=== PATIENT | female | born 1995 | race Two or more races ===

== ENCOUNTER 2023-04-05 19:24 | Emergency (ER) | payer OTHER ==
[~2023-04-05] VITALS: Ht 167.6 cm; Wt 59.0 kg
[2023-04-05] MEDS ORDERED: IRON18 MG PO (19:27)
[2023-04-05] MEDS ORDERED: KETOROLAC TROMETHAMINE 30 MG VIAL IM STA (20:50)
== END 2023-04-05 21:16 | disposition home or self-care (01) ==
LOC: ER 19:24
DX: R53.81 Other malaise (principal); J02.9 Acute pharyngitis, unspecified; Z88.1 Allergy status to other antibiotic agents; Z88.8 Allergy status to other drugs, medicaments and biological substances

== ENCOUNTER 2023-04-11 11:37 | Emergency (ER) | payer OTHER ==
[~2023-04-11] VITALS: Ht 167.6 cm; Wt 59.0 kg
[~2023-04-11 11:37] MED LIST: IRON18 MG PO
== END 2023-04-11 13:10 | disposition home or self-care (01) ==
LOC: ER 11:37
DX: R05.8 Other specified cough (principal); Z88.8 Allergy status to other drugs, medicaments and biological substances

== ENCOUNTER 2023-11-10 17:40 | Emergency (ER) | payer OTHER ==
[~2023-11-10] VITALS: Ht 167.6 cm; Wt 57.2 kg
== END 2023-11-10 19:45 | disposition home or self-care (01) ==
LOC: ER 17:42
DX: H60.90 Unspecified otitis externa, unspecified ear (principal); Z88.1 Allergy status to other antibiotic agents; Z88.8 Allergy status to other drugs, medicaments and biological substances

== ENCOUNTER 2023-12-04 17:03 | Emergency (ER) | payer OTHER ==
[~2023-12-04] VITALS: Ht 167.6 cm; Wt 69.4 kg
[2023-12-04] MEDS ORDERED: CIPRO500 MG PO (17:26)
[2023-12-04] MEDS ORDERED: PRILOSEC OTC20 MG PO (17:28)
== END 2023-12-04 17:51 | disposition home or self-care (01) ==
LOC: ER 17:05
DX: H66.90 Otitis media, unspecified, unspecified ear (principal); Z88.1 Allergy status to other antibiotic agents; Z88.8 Allergy status to other drugs, medicaments and biological substances

== ENCOUNTER 2023-12-30 16:46 | Emergency (ER) | payer OTHER ==
[~2023-12-30] VITALS: Ht 167.6 cm; Wt 57.6 kg
[~2023-12-30 16:46] MED LIST changes: +CIPRO500 MG PO; +PRILOSEC OTC20 MG PO
[2023-12-30] MEDS ORDERED: FLUCONAZOLE200 MG PO (21:36)
== END 2023-12-30 21:47 | disposition home or self-care (01) ==
LOC: ER 16:48
DX: H60.8X3 Other otitis externa, bilateral (principal); Z88.8 Allergy status to other drugs, medicaments and biological substances